=== PATIENT | male | born 1950 | race Caucasian/White ===

== ENCOUNTER → 2016-08-31 | Outpatient (CLI) | payer BC, MEDICARE | END | disposition home or self-care (01) | LOC: PCVCIMAG 12:30 | PROVIDERS: ATTEND Nuclear Medicine Nuclear Cardiology | DX: I73.9 Peripheral vascular disease, unspecified (principal); I77.9 Disorder of arteries and arterioles, unspecified; I25.10 Atherosclerotic heart disease of native coronary artery without angina pectoris; I10 Essential (primary) hypertension; I65.23 Occlusion and stenosis of bilateral carotid arteries | CPT/HCPCS: 93880; 93925 ==

== ENCOUNTER → 2016-11-24 | Outpatient (CLI) | payer BC, MEDICARE | END | disposition home or self-care (01) | LOC: PCVCIMAG 10:47 | PROVIDERS: ATTEND Internal Medicine Cardiovascular Disease | DX: I25.10 Atherosclerotic heart disease of native coronary artery without angina pectoris (principal); Z95.1 Presence of aortocoronary bypass graft | CPT/HCPCS: 93325; 93351 ==

== ENCOUNTER → 2017-07-21 | Outpatient (CLI) | payer BC, MEDICARE | END | disposition home or self-care (01) | LOC: PCVCCLINIC 11:30 | PROVIDERS: ATTEND Internal Medicine Cardiovascular Disease | DX: I25.10 Atherosclerotic heart disease of native coronary artery without angina pectoris (principal); E78.00 Pure hypercholesterolemia, unspecified; I10 Essential (primary) hypertension; I77.9 Disorder of arteries and arterioles, unspecified; I73.9 Peripheral vascular disease, unspecified; Z95.1 Presence of aortocoronary bypass graft; Z79.82 Long term (current) use of aspirin; Z79.899 Other long term (current) drug therapy | CPT/HCPCS: 80061; 93005; G0463 ==

== ENCOUNTER → 2017-09-29 | Outpatient (CLI) | payer BC, MEDICARE | END | disposition home or self-care (01) | LOC: PCVCIMAG 13:42 | DX: I73.9 Peripheral vascular disease, unspecified (principal); I25.10 Atherosclerotic heart disease of native coronary artery without angina pectoris; E78.00 Pure hypercholesterolemia, unspecified; I10 Essential (primary) hypertension | CPT/HCPCS: 80061; 93925 ==

== ENCOUNTER → 2017-11-07 | Outpatient (CLI) | payer BC, MEDICARE | END | disposition home or self-care (01) | LOC: PCVCIMAG 10:51 | DX: I25.10 Atherosclerotic heart disease of native coronary artery without angina pectoris (principal); I10 Essential (primary) hypertension; E78.5 Hyperlipidemia, unspecified; Z95.1 Presence of aortocoronary bypass graft | CPT/HCPCS: 80061; 93325; 93351 ==

== ENCOUNTER → 2018-01-02 | Outpatient (CLI) | payer BC, MEDICARE | END | disposition home or self-care (01) | LOC: PCVCIMAG 09:24 | DX: I73.9 Peripheral vascular disease, unspecified (principal); I70.8 Atherosclerosis of other arteries | CPT/HCPCS: 93925 ==

== ENCOUNTER → 2018-01-23 | Outpatient (CLI) | payer BC, MEDICARE | END | disposition home or self-care (01) | LOC: PCVCCLINIC 10:27 | DX: I73.9 Peripheral vascular disease, unspecified (principal); I10 Essential (primary) hypertension; E78.00 Pure hypercholesterolemia, unspecified; I25.10 Atherosclerotic heart disease of native coronary artery without angina pectoris; Z88.8 Allergy status to other drugs, medicaments and biological substances | CPT/HCPCS: 36415 ==

== ENCOUNTER → 2018-01-24 | Outpatient (CLI) | payer BC, MEDICARE ==
[~2018-01-24] MED LIST: ASPIRIN 325 MG TABLET ONE; CLOPIDOGREL BISULFATE 75 MG TABLET ONE; DIAZEPAM 10 MG TABLET. ONE; EPTIFIBATIDE BOLUS 2,000 MCG/ML 10ML VIAL. IV ONE; HEPARIN SODIUM 5,000 UNIT/ML VIAL for PCVC. ONE; IODIXANOL 270 MG/ML 100 ML VIAL. ONE; IV NORMAL SALINE 1000ML BAG 1,000 ML ONE; LIDOCAINE 1%/EPI 1:100,000 20 ML VIAL. ONE; MIDAZOLAM HCL/PF 2 MG/2 ML VIAL. ONE; WATER FOR INJECTION,STERILE 20 ML VIAL. IJ ONE; ceFAZolin SODIUM 1 GM VIAL ONE; fentaNYL PF VIAL 100 MCG/2 ML VIAL ONE; hydrALAZINE 20 MG/ML VIAL. ONE
--- NOTE | 2018-01-24 18:34 | PCVCINTER ---
EXAM: 1. AORTOGRAM AND BILATERAL LOWER EXTREMITY RUNOFF ANGIOGRAM 2. BILATERAL RENAL ANGIOGRAPHY 3. LEFT TIBIOPERONEAL TRUNK/PROXIMAL PERONEAL ARTERY ATHERECTOMY AND DRUG-ELUTING STENT PLACEMENT. 4. SECONDARY THROMBECTOMY LEFT TIBIOPERONEAL TRUNK/PROXIMAL PERONEAL ARTERY. INDICATION: Peripheral arterial disease. Coronary artery disease. Left foot pain. Hypertension. Renal atherosclerosis. No prior catheter based angiographic study is available. A full diagnostic angiogram study is performed today and the decision to intervene is based on this diagnostic study. PROCEDURE: Procedure and risks of angiography intervention is appropriate including limb loss stroke and were discussed with the patient's family and consent obtained. The patient's right groin was prepped in the normal sterile fashion. IV conscious sedation was used throughout procedure with appropriate monitoring from 8:45 AM through 10:30 AM. Ultrasound was used to interrogate the right groin and showed the right common femoral artery to be patent. A permanent spot film was obtained. Under ultrasound guidance access into the right common femoral artery was obtained and a 5 Italian sheath was placed. Through this a 5 Italian flush catheter was placed into the abdominal aorta at the level of the renal arteries and AP aortogram was performed. Catheter was positioned at the aortic bifurcation and both oblique views of the pelvis were obtained. Catheter was positioned into the right external iliac artery and right leg runoff angiography was performed. Catheter was exchanged for a visceral catheter was placed into the right renal arteries and right renal angiograms obtained. Catheter was placed into the the left renal arteries and left renal angiograms were obtained. Catheter was advanced to the level of the left external iliac artery and left leg runoff angiography was obtained. Patient was given 4500 units of heparin. A 6 Italian crossover sheath was placed via the right groin to the level of the left common femoral artery. Initial attempts were made to cross the proximal left posterior tibial artery occlusion without success. Atherectomy of the left tibioperoneal trunk/proximal peroneal artery was performed with 0.9 mm [email or web address] laser atherectomy catheter in the standard fashion. Following atherectomy small areas of thrombus were observed and because of this secondary thrombectomy throughout the left tibioperoneal trunk/peroneal artery was carried out with mechanical suction thrombectomy catheter in the standard fashion. Minimal debris was removed. Stent placement across the areas of high-grade stenosis in the left tibioperoneal trunk/proximal peroneal artery was carried out with a 3.5 x 33 and 4.0 x 33 EluNIR stents with subsequent dilatation to 3.5 mm distally and 4.0 mm proximally. Follow-up angiogram was performed. Catheters and wires removed. Sheath was removed and hemostasis obtained using the FISH device. No immediate complications. FINDINGS: Aortogram: There is one right and 3 left renal arteries. Mild plaque infrarenal abdominal aorta without significant stenosis. Pelvis: Right common iliac and left common iliac arteries are patent. Both internal iliac arteries are patent. The right and left external iliac arteries are patent. The right and left common femoral and profunda femoral arteries are patent. Right renal artery: Mild plaque proximal vessel does not cause significant stenosis. Left renal artery: There are 3 left renal arteries. The middle renal artery is a dominant renal artery showing minimal plaque proximally without significant stenosis. Upper and lower renal arteries are small accessory renal arteries also show good patency. Right leg: Superficial femoral artery is widely patent. 60% stenosis mid enterprise popliteal artery. Occlusion of the distal most popliteal artery. The anterior tibial artery is occluded throughout its length. The tibioperoneal trunk is occluded. Refilling at the level of the upper peroneal artery which then shows adequate patency into the foot. Refilling of the mid posterior tibial artery which then shows satisfactory patency to runoff into the foot. Left leg: Superficial femoral artery and popliteal artery show satisfactory patency. Anterior tibial artery is occluded in its mid and upper portion. Upper third of the posterior tibial artery shows complete occlusion. Subtotal occlusion proximal peroneal artery which then shows good patency to refill the distal portions of the anterior and posterior tibial arteries to runoff into the dorsalis pedis and plantar arteries. Left tibioperoneal trunk/proximal peroneal artery: Following procedure as above vessel is widely patent. IMPRESSION: Unchanged occlusion distal most right popliteal artery and right anterior tibial artery. Subtotal occlusion proximal left peroneal artery with stenosis left tibioperoneal trunk was treated as above with good patency restored with good single vessel runoff into the foot. LOC:[id number]
== END | disposition home or self-care (01) ==
LOC: PCVCINTER 08:22
PROVIDERS: ATTEND Nuclear Medicine Nuclear Cardiology
DX: I70.293 Other atherosclerosis of native arteries of extremities, bilateral legs (principal); I70.1 Atherosclerosis of renal artery; I25.10 Atherosclerotic heart disease of native coronary artery without angina pectoris; I10 Essential (primary) hypertension; I70.0 Atherosclerosis of aorta; Z88.8 Allergy status to other drugs, medicaments and biological substances; E78.00 Pure hypercholesterolemia, unspecified
CPT/HCPCS: 36252; 37186; 37231; 75716; 76937; 99152; 99153; C1751; C1769; C1876; C1894; J0690; J1327; J1644; J2250; J3010; J3490; J7030; Q9966; J0360

== ENCOUNTER → 2018-04-12 | Outpatient (CLI) | payer BC, MEDICARE ==
--- NOTE | 2018-04-12 16:13 | PCVCIMAG ---
EXAM: BILATERAL CAROTID DUPLEX INDICATION: Carotid Occlusive Disease. FINDINGS: Doppler Measurements (centimeters per second): RIGHT: Peak CCA-94, Peak ECA-183, Diastolic ICA-33, Peak ICA-89, ICA/CCA Ratio-0.9. LEFT: Peak CCA-130, Peak ECA-233, Diastolic ICA-37, Peak ICA-131, ICA/CCA Ratio-1.0. RIGHT CAROTID: The carotid bulb has mild plaque. The proximal internal carotid artery shows <40% stenosis. The common carotid artery shows no significant stenosis. The external carotid artery shows 60% stenosis. LEFT CAROTID: The carotid bulb has mild plaque. The proximal internal carotid artery shows <40% stenosis. The common carotid artery shows no significant stenosis. The external carotid artery shows 70% stenosis. Antegrade flow in both vertebral arteries. IMPRESSION: <40% stenosis of the right internal carotid artery with mild plaque. <40% stenosis of the left internal carotid artery with mild plaque. LOC:[id number]
--- NOTE | 2018-04-12 16:34 | PCVCIMAG ---
EXAM: LEFT LOWER EXTREMITY ARTERIAL DUPLEX INDICATION: Peripheral Arterial Disease. Leg pain. FINDINGS: Left Leg: Common femoral and profunda femoral arteries are patent. Superficial femoral artery and popliteal artery are patent. The mid and upper anterior and posterior tibial arteries are occluded and this is unchanged. Previous stent tibioperoneal trunk and proximal peroneal artery is patent. Mid and distal peroneal artery showing good arterial waveform and patency. IMPRESSION: Previous left tibioperoneal trunk/proximal peroneal artery stent maintaining good patency. Unchanged occlusion of the left anterior and posterior tibial arteries. LOC:[id number]
== END | disposition home or self-care (01) ==
LOC: PCVCIMAG 16:18
PROVIDERS: ATTEND Nuclear Medicine Nuclear Cardiology
DX: I65.23 Occlusion and stenosis of bilateral carotid arteries (principal); I73.9 Peripheral vascular disease, unspecified
CPT/HCPCS: 93880; 93926

== ENCOUNTER → 2018-07-17 | Outpatient (CLI) | payer BC, MEDICARE ==
--- NOTE | 2018-07-17 09:37 | PCVCIMAG ---
EXAM: AORTOILIAC DUPLEX INDICATION: Peripheral arterial disease. Left hip pain. FINDINGS: AORTA: Suprarenal aorta measures maximum diameter of 2.4 cm. There is not a fusiform infrarenal aortic aneurysm. The infrarenal aorta measures maximum diameter of 2.4 cm. No aortic stenosis. RIGHT COMMON ILIAC ARTERY: Maximum diameter is 1.3 cm. No significant stenosis. RIGHT EXTERNAL ILIAC ARTERY: No significant stenosis. LEFT COMMON ILIAC ARTERY: Maximum diameter is 1.4 cm. No significant stenosis. LEFT EXTERNAL ILIAC ARTERY: No significant stenosis. IMPRESSION: No abdominal aortic aneurysm. No aortoiliac stenosis seen. LOC:[id number]
== END | disposition home or self-care (01) ==
LOC: PCVCIMAG 08:26
PROVIDERS: ATTEND Nuclear Medicine Nuclear Cardiology
DX: I73.9 Peripheral vascular disease, unspecified (principal); M25.552 Pain in left hip
CPT/HCPCS: 93978

== ENCOUNTER → 2018-08-16 | Outpatient (CLI) | payer BC, MEDICARE ==
--- NOTE | 2018-08-16 14:46 | PCVCIMAG ---
APPROVED REPORT Study performed: 08/16/2018 12:13:50 EXAM: Comprehensive 2D, Doppler, and color-flow Echocardiogram Patient Location: Echo lab Status: routine BSA: 2.22 HR: 58 bpmBP: 136/74 mmHg Rhythm: Bradycardia Other Information Study Quality: Adequate Risk Factors: Cardiac Risk Factors: HTN Indications Dyspnea CAD Chest Pain 2D Dimensions IVSd: 13.97 (7-11mm) LVDd: 42.88 mm PWd: 12.13 (7-11mm)Ascending Ao: 39.09 (22-36mm) LVDs: 34.23 (25-40mm) Left Atrium: 39.28 (27-40mm) Aortic Root: 35.62 mm LV Single Plane 4CH: 56.46 % LV Single Plane 2CH: 49.21 % Biplane EF: 52.1 % Volumes Left Atrial Volume (Systole) Single Plane 4CH: 63.02 mLSingle Plane 2CH: 60.36 mL LA ESV Index: 29.00 mL/m2 Aortic Valve AoV Peak Jason.: 1.71 m/s AO Peak Gr.: 11.63 mmHgLVOT Max P.73 mmHg LVOT Max V: 0.97 m/s Mitral Valve E/A Ratio: 1.2 MV Decel. Time: 322.18 ms MV E Max Jason.: 0.43 m/s MV A Jason.: 0.37 m/s IVRT: 114.19 ms Pulmonary Valve PV Peak Jason.: 0.74 m/sPV Peak Gr.: 2.17 mmHg Pulmonary Vein P Vein S: 0.32 m/sP Vein A: 0.35 m/s P Vein D: 0.46 m/sP Vein A Dur.: 162.6 msec P Vein S/D Ratio: 0.70 Tricuspid Valve TR Peak Jason.: 2.09 m/s TR Peak Gr.: 17.40 mmHg Left Ventricle The left ventricle is normal size. There is normal LV segmental wall motion. Mild concentric left ventricular hypertrophy. Left ventricular systolic function is normal. The left ventricular ejection fraction is within the normal range. LVEF is >55%. Grade I - abnormal relaxation pattern. Right Ventricle The right ventricle is normal size. The right ventricular systolic function is normal. Atria The left atrium size is normal. The right atrium size is normal. Aortic Valve Mild aortic valve sclerosis. No aortic regurgitation is present. There is no aortic valvular stenosis. Mitral Valve The mitral valve is normal in structure. Mild mitral regurgitation. No evidence of mitral valve stenosis. Tricuspid Valve The tricuspid valve is normal in structure. Trace tricuspid regurgitation with PAP of 24 mmHg. Pulmonic Valve The pulmonary valve is normal in structure. There is no pulmonic valvular regurgitation. Great Vessels The aortic root is normal in size. IVC is normal in size and collapses >50% with inspiration. Pericardium There is no pericardial effusion. There is no pleural effusion. <Conclusion> The left ventricle is normal size. LVEF is >55%. Grade I - abnormal relaxation pattern. The right ventricle is normal size. The left atrium size is normal. Mild aortic valve sclerosis. There is no aortic valvular stenosis. Mild mitral regurgitation. Trace tricuspid regurgitation with PAP of 24 mmHg. The aortic root is normal in size. There is no pericardial effusion.
--- NOTE | 2018-08-16 15:12 | PCVCIMAG ---
EXAM: ABDOMINAL ULTRASOUND COMPLETE INDICATION: Abdominal pain FINDINGS: Gallbladder: Several shadowing gallstones. Borderline prominence of the gallbladder wall likely related to chronic cholecystitis. No abnormal pericholecystic fluid. Please correlate clinically. No severe pain with direct scanning over the gallbladder. Liver: Normal in size measuring 18.4 cm in length. No focal masses. Diffuse increased echogenicity most compatible with diffuse fatty infiltration. Bile ducts: No intra or extra hepatic bile duct dilatation. The common bile duct measures 4.9 mm. Pancreas: Difficult to see due to overlying bowel gas. Spleen: Normal in size measuring 11.2 cm in greatest dimension. No focal masses. Right kidney: No hydronephrosis. Length measures 11.6 cm. Left kidney: No hydronephrosis. Length measures 12.6 cm. Inferior vena cava: Normal in size where seen. Aorta: Normal in caliber where seen. IMPRESSION: Several shadowing gallstones with borderline prominence of the gallbladder wall likely related to chronic cholecystitis. Further surgical consultation may be of value. LOC:[id number]
== END | disposition home or self-care (01) ==
LOC: PCVCIMAG 14:27
PROVIDERS: ATTEND Internal Medicine Cardiovascular Disease
DX: I08.0 Rheumatic disorders of both mitral and aortic valves (principal); K80.20 Calculus of gallbladder without cholecystitis without obstruction; I25.10 Atherosclerotic heart disease of native coronary artery without angina pectoris; R06.00 Dyspnea, unspecified; R07.9 Chest pain, unspecified; R10.10 Upper abdominal pain, unspecified
CPT/HCPCS: 76700; 93306

== ENCOUNTER → 2018-08-17 | Outpatient (CLI) | payer BC, MEDICARE ==
--- NOTE | 2018-08-17 13:49 | PCVCIMAG ---
APPROVED REPORT Study performed: 08/17/2018 11:37:00 Exam: Stress Echocardiogram Indication: CAD s/p CABG, Hypertension, Hypertension Patient Location: Echo lab Stress Nurse: Shara Mcintosh RN Status: routine Ht: 6 ft 4 in HR: 84 bpm BP: 140/80 mmHg Rhythm: Atrial Fibrillation Medical History Medical History: CAD s/p CABG, CAD s/p stent Procedure The patient underwent an Exercise Stress Test using the [place] Protocol. Blood pressure, heart rate, and EKG were monitored. An Echocardiogram was performed by biomedical equipment technician in four stages in quad fashion. At peak stress, four selected images were obtained and placed side by side with resting images for comparison. Stress Test Details Stress Test: Exercise stress testing was performed using a Tyrese protocol. HR Resting HR: 84 bpmMax Heart Rate (APMHR): 152 bpm Max HR Achieved: 151 bpmTarget HR (85% APMHR): 129 bpm % of APMHR: 99 Recovery HR: 97 bpm HR response to stress: Normal HR response to stress BP Resting BP: 140/80 mmHg Max BP: 194/90 mmHg Recovery BP: 164/84 mmHg BP response to stress: Normal blood pressure response to stress. ECG Resting ECG: Sinus Rhythm Stress ECG: Sinus Rhythm with frequent ectopy Recovery ECG: Sinus Rhythm Recovery Arrhythmia: APC, VPC, Couplets, Clinical Reason for Termination: Maximal effort Exercise duration: 13.20 min sec Highest Stage Achieved: Stage 4: 4.2 mph at 16% grade. Exercise capacity: 13.20 METs Overall Exercise Capacity for Age: Good Pre-Stress Echo The resting Echocardiogram showed normal left ventricular contractility with an estimated Ejection Fraction of about 55-60%. Normal wall motion in all segments on baseline images. Post-Stress Echo The stress Echocardiogram showed normal left ventricular contractility with an estimated Ejection Fraction of about 60-65%. Normal augmentation of wall motion in all segments on post stress images. Clinical No clinical or ECG evidence for ischemia. Conclusion Clinical Response: Non-ischemic Exercise Capacity: Average Stress ECG Response: Non-ischemic Stress Echo Images: Non-ischemic The left ventricle is normal in size and wall thickness in both the rest and stress images. Other Information Study Quality: Good <Conclusion> The left ventricle is normal in size and wall thickness in both the rest and stress images.
== END | disposition home or self-care (01) ==
LOC: PCVCIMAG 12:56
PROVIDERS: ATTEND Internal Medicine Cardiovascular Disease
DX: I25.810 Atherosclerosis of coronary artery bypass graft(s) without angina pectoris (principal); R06.00 Dyspnea, unspecified; I48.91 Unspecified atrial fibrillation; Z95.1 Presence of aortocoronary bypass graft
CPT/HCPCS: 93325; 93351

== ENCOUNTER → 2018-10-10 | Outpatient (CLI) | payer BC, MEDICARE ==
--- NOTE | 2018-10-10 10:21 | PCVCIMAG ---
EXAM: Left LOWER EXTREMITY ARTERIAL DUPLEX INDICATION: Peripheral Arterial Disease. Leg pain. FINDINGS: Left Leg: Common femoral and profunda femoral arteries are patent. Superficial femoral artery and popliteal artery are patent. Occlusion of the anterior and posterior tibial arteries is unchanged. Previous stent tibioperoneal trunk and proximal peroneal artery shows mild restenosis in its midportion not felt be critically flow-limiting. Satisfactory arterial waveforms maintained throughout the peroneal artery and into the dorsalis pedis. IMPRESSION: Mild restenosis left tibioperoneal trunk/proximal peroneal artery drug-eluting stent not felt be flow-limiting. Unchanged occlusion left anterior and posterior tibial arteries. LOC:[id number]
== END | disposition home or self-care (01) ==
LOC: PCVCIMAG 08:39
PROVIDERS: ATTEND Internal Medicine Cardiovascular Disease
DX: I73.9 Peripheral vascular disease, unspecified (principal)
CPT/HCPCS: 93926

== ENCOUNTER 2018-11-17 16:48 | Emergency (ER) | payer BC, MEDICARE, OTHER ==
[~2018-11-17] VITALS: Ht 193 cm; Wt 93.0 kg
[2018-11-17 17:26] VITALS: BP 150/81
--- NOTE | 2018-11-17 18:06 | PHYS DOC ---
Past Medical History Past Medical History: Hypothyroid Past Surgical History: Cholecystectomy Alcohol Use: None Drug Use: None Adult General Chief Complaint Chief Complaint: OTHER COMPLAINTS HPI HPI Patient is a 67 year old male with history of hypothyroidism who presents today complaining of his glands swelling around the jaw area since yesterday. Patient states the swelling only occurs when he gets into his job. He states he was off work for 10 weeks after having surgery. He states when he went back to work yesterday he walked into his company and immediately started feeling his glands are swollen. He states the symptoms are occurring because he is being exposed to poison at work. He states the poison includes oils, fumes and chemicals around his job. He continued to say his swollen glands and the poison at work caused him hypothyroidism. He is requesting a note stating he is being exposed to poison at work. Informed patient this is not realistic i have no proof of this. Currently he has no glands swelling. Informed him his symptoms could be due to environmental factors but i have no proof it is work related only. Informed patient i feel he should f/u with a . Recommended he starts taking Zyrtec every day. He was discharged to home. Review of Systems Review of Systems Constitutional: Denies fever or chills [] Eyes: Denies change in visual acuity, redness, or eye pain [] HENT: Reports gland swelling around the jaw. Denies nasal congestion or sore throat [] Respiratory: Denies cough or shortness of breath [] Cardiovascular: No additional information not addressed in HPI [] GI: Denies abdominal pain, nausea, vomiting, bloody stools or diarrhea [] : Denies dysuria or hematuria [] Musculoskeletal: Denies back pain or joint pain [] Integument: Denies rash or skin lesions [] Neurologic: Denies headache, focal weakness or sensory changes [] All other systems were reviewed and found to be within normal limits, except as documented in this note. Allergies Allergies Allergies Coded Allergies Type Severity Reaction Last Updated Verified Sospsfp-Emy-Nxh Reductase Inhibitor Allergy Severe 11/17/18 Yes Physical Exam Physical Exam Constitutional: Well developed, well nourished, no acute distress, non-toxic appearance. [] HENT: Normocephalic, atraumatic, bilateral external ears normal, oropharynx moist, no oral exudates, nose normal. No lymphadenopathy was noted on physical exam. Eyes: PERRLA, EOMI, conjunctiva normal, no discharge. [] Neck: Normal range of motion, no tenderness, supple, no stridor. [] Cardiovascular:Heart rate regular rhythm, no murmur [] Lungs & Thorax: Bilateral breath sounds clear to auscultation [] Abdomen: Bowel sounds normal, soft, no tenderness, no masses, no pulsatile masses. [] Skin: Warm, dry, no erythema, no rash. [] Back: No tenderness, no CVA tenderness. [] Extremities: No tenderness, no cyanosis, no clubbing, ROM intact, no edema. [] Neurologic: Alert and oriented X 3, normal motor function, normal sensory function, no focal deficits noted. [] Psychologic: Affect normal, judgement normal, mood normal. [] Current Patient Data Vital Signs Vital Signs Date Time Temp Pulse Resp B/P (MAP) Pulse Ox O2 Delivery O2 Flow Rate FiO2 11/17/18 17:26 98.7 77 16 150/81 (104) 97 Room Air 98.7 EKG EKG [] Radiology/Procedures Radiology/Procedures [] Course & Med Decision Making Course & Med Decision Making Pertinent Labs and Imaging studies reviewed. (See chart for details) See history of present illness Dragon Disclaimer Dragon Disclaimer This electronic medical record was generated, in whole or in part, using a voice recognition dictation system. Departure Departure Impression: Primary Impression: Lymphadenopathy Disposition: 01 HOME, SELF-CARE Condition: STABLE Referrals: WALLY FRANCIS MD (PCP) Follow-up in 1-2 weeks Additional Instructions: You were seen in the emergency room with concerns of your gland swelling when you get to work. Consider taking Zyrtec every day. Consider following up with your own primary care doctor in 1-2 weeks CORDELL LARA APRN Nov 17, 2018 18:06
== END 2018-11-17 18:35 | disposition home or self-care (01) ==
LOC: ER 16:48
DX: R59.1 Generalized enlarged lymph nodes (principal); E03.9 Hypothyroidism, unspecified; Z91.041 Radiographic dye allergy status
CPT/HCPCS: 99281

== ENCOUNTER → 2018-12-27 | Outpatient (CLI) | payer MEDICARE, BC | END | disposition home or self-care (01) | LOC: PCVCCLINIC 14:00 | PROVIDERS: ATTEND Internal Medicine Cardiovascular Disease | DX: R07.9 Chest pain, unspecified (principal); I77.9 Disorder of arteries and arterioles, unspecified; I73.9 Peripheral vascular disease, unspecified; I25.10 Atherosclerotic heart disease of native coronary artery without angina pectoris; E78.00 Pure hypercholesterolemia, unspecified; I10 Essential (primary) hypertension; E03.9 Hypothyroidism, unspecified; Z90.49 Acquired absence of other specified parts of digestive tract; Z79.82 Long term (current) use of aspirin; Z72.89 Other problems related to lifestyle | CPT/HCPCS: 93005; G0463 ==

== ENCOUNTER → 2018-12-29 | Outpatient (CLI) | payer BC, MEDICARE ==
--- NOTE | 2018-12-29 14:31 | PCVCIMAG ---
APPROVED REPORT Study performed: 12/29/2018 11:23:32 Exam: Stress Echocardiogram Indication: CAD s/p CABG, chest burning, chest pain Patient Location: Echo lab Stress Nurse: Shara Mcintosh RN Status: routine Ht: 6 ft 4 in HR: 71 bpm BP: 122/72 mmHg Rhythm: NSR Medical History Medical History: CAD s/p CABG, CAD s/p stent Procedure The patient underwent an Exercise Stress Test using the Tyrese Protocol. Blood pressure, heart rate, and EKG were monitored. An Echocardiogram was performed by cardiothoracic anesthesia technician in four stages in quad fashion. At peak stress, four selected images were obtained and placed side by side with resting images for comparison. Stress Test Details Stress Test: Exercise stress testing was performed using a Tyrese protocol. HR Resting HR: 71 bpmMax Heart Rate (APMHR): 151 bpm Max HR Achieved: 126 bpmTarget HR (85% APMHR): 128 bpm % of APMHR: 83 Recovery HR: 86 bpm HR response to stress: Normal HR response to stress BP Resting BP: 122/72 mmHg Max BP: 194/84 mmHg Recovery BP: 174/70 mmHg BP response to stress: Normal blood pressure response to stress. ECG Resting ECG: Sinus Rhythm Stress ECG: Sinus Rhythm Arrhythmia: VPC's Recovery ECG: Sinus Rhythm Clinical Reason for Termination: Dyspnea, Chest Burning/discomfort Stress Symptoms: Dyspnea Exercise duration: 8 min 15 sec Highest Stage Achieved: Stage 3: 3.4 mph at 14% grade. Exercise capacity: 10.10 METs Overall Exercise Capacity for Age: Normal Stress ECG Conclusion ECG: Non-ischemic Clinical: Pt. experienced burning in chest/jaw 03/10 with exercise. Pain resolved post exercise. Normal submaximal stress test. Pre-Stress Echo The resting Echocardiogram showed normal left ventricular contractility with an estimated Ejection Fraction of about >55%. Normal wall motion in all segments on baseline images. Post-Stress Echo The stress Echocardiogram showed normal left ventricular contractility with an estimated Ejection Fraction of about 60-65%. Normal augmentation of wall motion in all segments on post stress images. Clinical No clinical or ECG evidence for ischemia. Conclusion Clinical Response: Pt. experienced burning in chest/jaw 03/10 with exercise. Pain resolved post exercise. Exercise Capacity: Average Stress ECG Response: Non-ischemic Stress Echo Images: Non-ischemic Normal stress echocardiogram with submaximal exercise stress. Other Information Study Quality: Good <Conclusion> Normal stress echocardiogram with submaximal exercise stress.
== END | disposition home or self-care (01) ==
LOC: PCVCIMAG 11:15
PROVIDERS: ATTEND Internal Medicine Cardiovascular Disease
DX: I25.10 Atherosclerotic heart disease of native coronary artery without angina pectoris (principal); R07.9 Chest pain, unspecified; E78.2 Mixed hyperlipidemia; Z95.1 Presence of aortocoronary bypass graft
CPT/HCPCS: 93325; 93351

== ENCOUNTER → 2019-04-13 | Outpatient (CLI) | payer BC, MEDICARE | END | disposition home or self-care (01) | LOC: PCVCCLINIC 14:35 | PROVIDERS: ATTEND Internal Medicine Cardiovascular Disease | DX: I25.10 Atherosclerotic heart disease of native coronary artery without angina pectoris (principal); I10 Essential (primary) hypertension; I73.9 Peripheral vascular disease, unspecified; E78.01 Familial hypercholesterolemia; E78.1 Pure hyperglyceridemia; E03.9 Hypothyroidism, unspecified; Z78.9 Other specified health status; Z79.82 Long term (current) use of aspirin; Z79.899 Other long term (current) drug therapy | CPT/HCPCS: 36415; 80061; 93005; G0463 ==

== ENCOUNTER → 2019-05-01 | Outpatient (CLI) | payer BC, MEDICARE ==
--- NOTE | 2019-05-01 17:04 | PCVCIMAG ---
EXAM: BILATERAL LOWER EXTREMITY ARTERIAL DUPLEX INDICATION: Peripheral Arterial Disease. Leg pain. FINDINGS: Right Leg: Common femoral and profunda femoral arteries are patent. Superficial femoral artery is patent. Unchanged occlusion of the distal popliteal artery. Occlusion throughout the anterior tibial artery and the mid/upper peroneal and posterior tibial arteries. Left Leg: Common femoral and profunda femoral arteries are patent. Superficial femoral artery and popliteal artery are patent. Increased systolic velocity 523 cm/s consistent with 95% restenosis in the tibioperoneal trunk within prior stent. The mid/upper anterior and posterior tibial arteries are occluded. Mid and distal peroneal artery is patent. IMPRESSION: Unchanged occlusion distal right popliteal artery. Unchanged occlusion of the right anterior and posterior tibial arteries and peroneal artery as described. 95% restenosis left tibioperoneal trunk within prior stent. Unchanged occlusion mid/upper left anterior and posterior tibial arteries. LOC:[id number]
--- NOTE | 2019-05-01 17:44 | PCVCIMAG ---
APPROVED REPORT Study performed: 05/01/2019 15:38:58 Exam: Stress Echocardiogram Indication: CAD s/p PCI Patient Location: Echo lab Stress Nurse: Suzi Ann RN Room #: 2 Status: routine Ht: 6 ft 4 in HR: 72 bpm BP: 124/62 mmHg Rhythm: NSR Medical History Medical History: CAD s/p CABG,stents, PAD, Cardiac Risk Factors: Hyperlipidemia, HTN Previous Cardiac Procedures: CABG,PCI Exercise History: Indeterminate Procedure The patient underwent an Exercise Stress Test using the Tyrese Protocol. Blood pressure, heart rate, and EKG were monitored. An Echocardiogram was performed by technician inventory specialist in four stages in quad fashion. At peak stress, four selected images were obtained and placed side by side with resting images for comparison. Stress Test Details Stress Test: Exercise stress testing was performed using a Tyrese protocol. HR Resting HR: 74 bpmMax Heart Rate (APMHR): 151 bpm Max HR Achieved: 137 bpmTarget HR (85% APMHR): 128 bpm % of APMHR: 90 Recovery HR: 78 bpm HR response to stress: Normal HR response to stress BP Resting BP: 124/62 mmHg Max BP: 164/80 mmHg Recovery BP: 122/66 mmHg BP response to stress: Normal blood pressure response to stress. ECG Resting ECG: Sinus Rhythm Stress ECG: Sinus Rhythm ST Change: Non-ischemic Arrhythmia: Rare PVCs Recovery ECG: Sinus Rhythm Recovery ST Change: Non-ischemic Recovery ST Deviation: -0.95 mm Recovery Arrhythmia: None Clinical Reason for Termination: Maximal effort Stress Symptoms: Leg Fatigue Exercise duration: 8 min 16 sec Highest Stage Achieved: Stage 4: 4.2 mph at 16% grade. Exercise capacity: 10.9 METs Overall Exercise Capacity for Age: Average Scale: Active Angina Score: None No complications. Stress ECG Conclusion The patient exercised according to the TYRESE protocol for 8:16 mins; achieving a work level of 10.9 METS. The resting heart rate of 74 bpm selwyn to a maximum heart rate of 137 bpm. This value represents 90% of the maximal, age-predicted heart rate. The resting blood pressure of 124/62 mmHg, selwyn to a maximum blood pressure of 164/80 mmHg. The exercise test was stopped due to fatigue . Pre-Stress Echo The resting Echocardiogram showed normal left ventricular contractility with an estimated Ejection Fraction of about 55-60%. Normal wall motion in all segments on baseline images. Post-Stress Echo The stress Echocardiogram showed normal left ventricular contractility with an estimated Ejection Fraction of about 65-70%. Normal augmentation of wall motion in all segments on post stress images. Clinical No clinical or ECG evidence for ischemia. Conclusion Clinical Response: Non-ischemic Exercise Capacity: Average Stress ECG Response: Non-ischemic Stress Echo Images: Non-ischemic No clinical, EKG or echocardiographic evidence for ischemia. No echocardiographic evidence for exercise induced ischemia. Normal stress echocardiogram with maximal exercise stress. Normal color doppler. No regurgitation or stenosis present on pulmonic, mitral, tricuspid or aortic valves. <Conclusion> No clinical, EKG or echocardiographic evidence for ischemia. No echocardiographic evidence for exercise induced ischemia. Normal stress echocardiogram with maximal exercise stress. Normal color doppler. No regurgitation or stenosis present on pulmonic, mitral, tricuspid or aortic valves.
== END | disposition home or self-care (01) ==
LOC: PCVCIMAG 14:32
PROVIDERS: ATTEND Internal Medicine Cardiovascular Disease
DX: I70.213 Atherosclerosis of native arteries of extremities with intermittent claudication, bilateral legs (principal); I48.0 Paroxysmal atrial fibrillation; I10 Essential (primary) hypertension; E78.00 Pure hypercholesterolemia, unspecified; Z95.1 Presence of aortocoronary bypass graft
CPT/HCPCS: 93325; 93351; 93925

== ENCOUNTER → 2019-07-19 | Outpatient (CLI) | payer BC, MEDICARE ==
--- NOTE | 2019-07-19 12:15 | PCVCIMAG ---
APPROVED REPORT Indications Stenosis Doppler Spectral Velocity Analysis PSV / EDVPSV / EDV ECA (R) 132 / 18 cm/sECA (L) 112 / 20 cm/s dICA (R) 64 / 22 cm/sdICA (L) 63 / 24 cm/s Earlene (R) 69 / 26 cm/smICA (L) 81 / 29 cm/s pICA (R) 63 / 16 cm/spICA (L) 83 / 18 cm/s Bulb (R) 42 / 9 cm/sBulb (L) 92 / 28 cm/s dCCA (R) 70 / 18 cm/sdCCA (L) 89 / 22 cm/s mCCA (R) 72 / 16 cm/smCCA (L) 89 / 21 cm/s Vert (R) 35 / 8 cm/sVert (L) 50 / 14 cm/s ICA/CCA 0.99 ICA/CCA 0.93 Findings The right carotid bulb has mild calcified plaque. The right proximal internal carotid artery shows <40% stenosis. The right common carotid artery shows no significant stenosis. The right external carotid artery shows no significant stenosis. The left carotid bulb has minimal plaque. The left proximal internal carotid artery shows no significant stenosis. The left common carotid artery shows no significant stenosis. The left external carotid artery shows no significant stenosis. Conclusion 1. Right internal carotid artery mild plaquing (<40%). 2. Left internal carotid artery with minimal plaquing without significant stenosis. 3. Antegrade vertebral flow. In comparison the study dated April 12, 2018, no significant evidences are identified.
--- NOTE | 2019-07-19 12:30 | PCVCIMAG ---
EXAM: LEFT LOWER EXTREMITY ARTERIAL DUPLEX INDICATION: Peripheral Arterial Disease. Leg pain. FINDINGS: Left Leg: Common femoral and profunda femoral arteries are patent. Superficial femoral artery and popliteal artery are patent. Mild velocity increase is proximal tibioperoneal trunk within prior stent consistent with 40% restenosis. Stent maintaining adequate patency and the remainder of the tibioperoneal trunk and proximal peroneal artery. Unchanged occlusion of the posterior tibial artery. Occlusion of the proximal anterior tibial artery. IMPRESSION: Previous left tibioperoneal trunk/proximal peroneal artery stent showing 40-50% restenosis in the proximal tibioperoneal trunk not felt be critically flow-limiting. Unchanged occlusion of the left posterior tibial artery and proximal left anterior tibial artery. LOC:[id number]
== END | disposition home or self-care (01) ==
LOC: PCVCIMAG 12:02
PROVIDERS: ATTEND Nuclear Medicine Nuclear Cardiology
DX: I70.202 Unspecified atherosclerosis of native arteries of extremities, left leg (principal); I65.23 Occlusion and stenosis of bilateral carotid arteries
CPT/HCPCS: 93880; 93926